=== PATIENT | male | born 1955 | race Caucasian/White ===

== ENCOUNTER 2016-12-08 14:52 | Emergency (ER) | payer OTHER ==
[~2016-12-08] VITALS: Ht 170.2 cm; Wt 100.0 kg
[~2016-12-08 14:52] MED LIST: CLC100 PO; DTR5 PO; IBUP-1459 PO; LRT5 PO; rapaflo PO
[2016-12-08 14:57] VITALS: Ht 170.2 cm; Wt 100.0 kg
[2016-12-08] MEDS ORDERED: IBUPROFEN 600 MG TAB PO STA (15:05)
[2016-12-08] MEDS ORDERED: CITA40TA12 PO (15:08)
[2016-12-08] MEDS ORDERED: LISI-725 PO (15:08)
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
[2016-12-08 16:13] VITALS: BP 166/113; PULSE 72; TEMP 37; O2SAT 99
[2016-12-09] MEDS ORDERED: METO-157 PO (14:55)
[2016-12-09] MEDS ORDERED: TRAM-10 PO (14:55)
== END 2016-12-08 16:14 | disposition home or self-care (01) ==
LOC: EDBD 14:52 → C.EDA 14:53
DX: S16.1XXA Strain of muscle, fascia and tendon at neck level, initial encounter (principal); V43.52XA Car driver injured in collision with other type car in traffic accident, initial encounter; Y92.410 Unspecified street and highway as the place of occurrence of the external cause; E78.5 Hyperlipidemia, unspecified; Z79.899 Other long term (current) drug therapy

== ENCOUNTER 2016-12-09 12:48 | Emergency (ER) | payer OTHER ==
[~2016-12-09] VITALS: Ht 170.2 cm; Wt 102.2 kg
[~2016-12-09 12:48] MED LIST changes: +CITA40TA12 PO; -CLC100 PO; -DTR5 PO; -IBUP-1459 PO; +LISI-725 PO; -LRT5 PO; -rapaflo PO
[2016-12-09 12:53] VITALS: TEMP 36.3; Ht 170.2 cm; Wt 102.2 kg
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
[2016-12-09] MEDS ORDERED: METOCLOPRAMIDE HCL INJ 5 MG/ML 2 ML VIAL IM STA (13:53)
[2016-12-09] MEDS ORDERED: ACETAMINOPHEN 325 MG TAB PO STA (13:53)
[2016-12-09] MEDS ORDERED: IBUPROFEN 200 MG TAB PO STA (13:53)
[2016-12-09 14:10] VITALS: BP 154/95; PULSE 59; O2SAT 96
[2016-12-09] MEDS ORDERED: TRAM-10 PO (14:55)
[2016-12-09] MEDS ORDERED: METO-157 PO (14:55)
== END 2016-12-09 15:17 | disposition home or self-care (01) ==
LOC: C.EDB 12:51 → C.EDA 15:17
DX: S06.0X9A Concussion with loss of consciousness of unspecified duration, initial encounter (principal); R51 Headache; V43.52XA Car driver injured in collision with other type car in traffic accident, initial encounter; Y92.410 Unspecified street and highway as the place of occurrence of the external cause; I10 Essential (primary) hypertension; E78.5 Hyperlipidemia, unspecified

== ENCOUNTER → 2017-01-02 | Outpatient (CLI) | payer OTHER ==
[~2017-01-02] MED LIST changes: +METO-157 PO
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
== END | disposition home or self-care (01) ==
LOC: C.MRI 13:40
PROVIDERS: ATTEND Psychiatry & Neurology Neurology
DX: H54.62 Unqualified visual loss, left eye, normal vision right eye (principal)

== ENCOUNTER 2024-09-19 16:41 | Observation (INO) ==
--- NOTE | 2024-09-19 16:51 | Emergency Department Note ---
Impression & Plan Exertional chest pain, Hypertension, Hyperlipidemia ED Provider Note NAME: BIANKA REAL AGE: 68 SEX: M : 1955 ARRIVES VIA: Walk-In INFORMANT: Patient ED PROVIDER(S): Leroy Agrawal MD CHIEF COMPLAINT: Chest pain with exertion. PLAN: Disposition: Admit MEDICAL DECISION MAKING: The patient is a pleasant 68-year-old gentleman with past medical history of hypertension, hyperlipidemia who presents to the emergency department via walk- in accompanied by his daughter for evaluation of central chest pain/pressure which began approximately an hour prior to arrival in the setting of having neck and shoulder pain that began around 1300 in the setting of going for a walk which he reports was not particularly strenuous. Patient reports that he frequently will exert himself working in the garden [employer] and will feel pain in his chest but attributes this to muscular pain to the activity that he is doing. He reports in those instances the pain he feels is not surprising or out of the ordinary according to the activity at the time. However today he reports his walk was nonstrenuous at all but started to have the symptoms towards the end of his walk and then began to feel chest pressure. Patient reports he took 3 ibuprofen and attempted to hydrate but pain persisted. He otherwise denies any recent fevers, chills, cough, congestion, GI or symptoms. On my evaluation the patient is in no distress, afebrile with blood pressure 160s/90s and vital signs otherwise stable. Appears clinically dry. Exam is otherwise unremarkable. EKG without overt acute ischemia. CXR negative for acute cardiopulmonary process per my personal preliminary review/interpretation. WBC, hemoglobin and platelets within normal limits. Chemistry without metabolic acidosis. Likewise FTs unremarkable. High-sensitivity troponin 6.9, within normal limits. Lipase is normal. CTA of the chest with dissection protocol was performed and per my preliminary independent interpretation demonstrated no evidence of acute aortic pathology. Final report confirms no acute aortic pathology PE or acute process otherwise. Given the patient's exertional symptoms today in the setting of exertional chest pain prior to this which may or may not be due to muscular exertion/strain, patient and his daughter agree with plan for admission for further management. Heart score is 5, moderate risk. Patient was ordered full dose aspirin and trial of nitroglycerin though he reports his discomfort at this time is a 2/10. Case was discussed with SPEEDY Raphael PAC, with SPEEDY Gayle hospitalist who will evaluate the patient for admission. Further management per admitting team. Triage Nursing notes reviewed and agree them. Prior/external medical records reviewed Vital Signs: reviewed Differential diagnosis: Cardiac ischemia, aortic dissection, pulmonary embolism, pneumothorax, pneumonia, pericarditis, myocarditis, esophageal rupture, GERD, cholecystitis, pancreatitis, musculoskeletal, as well as other pathologies. ER treatment provided: See below. Diagnostics interpreted by me: ECG: Sinus rhythm with occasional PVCs, 83 bpm, no overt ST elevation or depression, QTc 451, QRS 94. Cardiac Monitoring: An order for continuous cardiac monitoring was placed and demonstrated Sinus rhythm with occasional PVCs, 83 bpm Laboratory studies: See below Imaging studies: See below Consultation(s): SPEEDY Raphael PAC, with SPEEDY Gayle hospitalist HPI: Per MDM. ROS: See above HPI for pertinent positives & negatives. A total of 10 systems reviewed and were otherwise negative. VITALS:See Below PHYSICAL EXAMINATION: GENERAL: Awake, alert, in no distress HENT: Normocephalic, atraumatic. Oropharynx with dry mucous membranes and otherwise unremarkable. EYES: Normal conjunctiva. Sclera non-icteric. NECK: Supple. No nuchal rigidity. FROM. No JVD. RESPIRATORY: Clear to auscultation. CARDIAC: Regular rate, normal rhythm. Extremities warm and well perfused. Pulses equal. ABDOMEN: Soft, non-distended. No tenderness to palpation. No rebound or guarding. No masses. MUSCULOSKELETAL: Chest examination reveals no tenderness. The back is symmetrical on inspection without obvious abnormality. There is no CVA tenderness to palpation. No joint edema. LOWER EXTREMITIES: Calves are equal size bilaterally and non-tender. No edema. No discoloration. NEURO: Normal sensorium. No sensory or motor deficits noted. SKIN: No rash or jaundice noted. Leroy Agrawal MD Past Med/Surg History Problem List (Updated 09/20/24 @ 03:41 by Leroy Agrawal MD) Exertional chest pain (Acute) Hypertension (Acute) Hyperglycemia Depression History of prostate cancer Hyperlipidemia (Chronic) Hypertension (Chronic) Surgical History H/O inguinal hernia repair Left H/O prostatectomy 01/17/2011 @ [facility] [place]. Jacinto Family History Brother Hypertension Aunt Myocardial infarction Other Diabetes Heart disease Denies family history of Breast cancer Lung cancer Colorectal cancer Social History Smoking Status: Current some day smoker Tobacco Type: Cigars Cigarettes Per Day: cigars will smoke 5 in 7 days; Second Hand Exposure: Yes; Do You Dip or Chew Tobacco: No; Hx Alcohol Use: Yes Alcohol type: beer Alcohol Intake Frequency: 4 or More x per/Week Hx Substance Use: No Preferred Language: Korean Communication Ability: Effective Hearing Ability: Normal Ventilation Worker Required: No Beliefs That Will Affect Care: None marital status: Current Living Situation: Alone current occupational status: employed Other Information That Helps Us Care for You: No Feels Safe at Home: Yes Safety Concerns: Feels Safe At This Time Childhood Exposure to Second-Hand Smoke: Yes Diet: regular caffeine: Yes Dental Care, Regularly: No Physical Activity Frequency: Does not Exercise Seatbelt Use: always Sunscreen Use: Yes Assistive Devices: Denture - Upper, Denture - Lower and Glasses Allergies Allergies Allergy/AdvReac Type Severity Reaction Status Date / Time bee venom protein (honey bee) Allergy Mild SWELLING Verified 08/03/24 09:30 bupropion AdvReac Unknown Dizziness Unverified 08/03/24 09:30 and headache Home Meds Previous Rx's Medication Instructions Recorded citalopram 40 mg tablet 40 mg PO HS #90 tabs 07/13/24 amlodipine 5 mg tablet 5 mg PO DAILY #90 tabs 08/03/24 lisinopril 20 mg tablet 20 mg PO QAM #90 tabs 08/03/24 Results & Data (ED) Vital Signs Vital Signs - 24 hr 09/19/24 16:44 09/19/24 16:50 09/19/24 16:50 Temperature 36.9 C Temperature Source Temporal Artery Scan Pulse Rate 83 Pulse Rate from SpO2 Sensor Respiratory Rate 16 Respiratory Effort / Characteristics Non-Labored Spontaneous Respiratory Depth Normal Blood Pressure 164/98 H Blood Pressure Mean 120 Blood Pressure Position Sitting Pulse Oximetry 97 97 Oxygen Delivery Method Room Air Room Air Room Air Sepsis Recent Fever Within 48 Hours No Sepsis New/Unexplained Change in Mental Status N/A Sepsis Action Taken by Nursing No Action Required Oxygen Flow Rate - Titration 97 09/19/24 16:55 09/19/24 17:00 09/19/24 17:30 Temperature Temperature Source Pulse Rate 86 78 85 Pulse Rate from SpO2 Sensor 86 82 Respiratory Rate 15 17 Respiratory Effort / Characteristics Respiratory Depth Blood Pressure 156/72 H 159/94 H Blood Pressure Mean 100 115 Blood Pressure Position Pulse Oximetry 92 96 Oxygen Delivery Method Room Air Room Air Sepsis Recent Fever Within 48 Hours Sepsis New/Unexplained Change in Mental Status Sepsis Action Taken by Nursing Oxygen Flow Rate - Titration 09/19/24 18:00 09/19/24 19:30 Temperature Temperature Source Pulse Rate 69 74 Pulse Rate from SpO2 Sensor Respiratory Rate 22 18 Respiratory Effort / Characteristics Respiratory Depth Blood Pressure 137/89 134/77 Blood Pressure Mean 97 98 Blood Pressure Position Pulse Oximetry 95 97 Oxygen Delivery Method Room Air Room Air Sepsis Recent Fever Within 48 Hours Sepsis New/Unexplained Change in Mental Status Sepsis Action Taken by Nursing Oxygen Flow Rate - Titration Laboratory Data Attestation: I reviewed the patient's lab results. 09/19/24 16:59 09/19/24 17:45 Lab Results 09/19/24 09/19/24 09/19/24 Range/Units 16:59 17:45 19:21 WBC 7.08 (4.8-10.8) K/ul RBC 4.28 L (4.70-6.10) M/uL Hgb 14.9 (14.0-18.0) g/dl Hct 41.4 L (42.0-52.0) % MCV 96.7 (80.0-100.0) fL MCH 34.8 H (25.0-34.0) pg MCHC 36.0 (32.0-36.0) g/dL RDW Std Deviation 42.0 (36.4-46.3) fL RDW Coeff of [place] 11.9 (11.5-14.5) % Plt Count 159 (130-400) K/uL MPV 9.8 (9.4-12.4) fL Immature Gran % (Auto) 0.1 % Neut % (Auto) 63.0 % Lymph % (Auto) 24.6 % [place] % (Auto) 10.6 % Eos % (Auto) 1.4 % Baso % (Auto) 0.3 % Neut # (Auto) 4.46 (1.40-6.50) K/uL Lymph # (Auto) 1.74 (1.20-3.40) K/uL [place] # (Auto) 0.75 H (0.11-0.59) K/uL Eos # (Auto) 0.10 (0.00-0.50) K/uL Baso # (Auto) 0.02 (0.00-0.20) K/uL Immature Gran # (Auto) 0.01 (0.01-0.20) K/uL PT 11.3 (9.0-12.0) Seconds INR 1.0 (0.9-1.1) Sodium Cancelled 135 L Potassium Cancelled 4.1 Chloride Cancelled 106 Carbon Dioxide Cancelled 24 Anion Gap Cancelled 5 BUN Cancelled 15 Creatinine Cancelled 0.89 Est Cr Clr Drug Dosing Cancelled 89.4 eGFR Cancelled 93.93 BUN/Creatinine Ratio Cancelled 16.9 Glucose Cancelled 105 H Calcium Cancelled 8.5 L Phosphorus Cancelled 3.1 Magnesium Cancelled 1.9 Total Bilirubin Cancelled 0.7 AST Cancelled 19 ALT Cancelled 13 Alkaline Phosphatase Cancelled 52 Troponin I High Sens 6.9 7.7 (0-20) pg/ml Total Protein Cancelled 6.6 Albumin Cancelled 3.5 Globulin Cancelled 3.1 Albumin/Globulin Ratio Cancelled 1.1 Lipase Cancelled 12 Administered Medications Citalopram Hydrobromide (Citalopram 40 Mg Tab) 40 mg PO HS LY Stop: 10/19/24 22:19 Last Admin: 09/19/24 22:37 Dose: 40 mg Documented By: LATA Enoxaparin Sodium (Enoxaparin Inj 40 Mg/0.4 Ml Syr) 40 mg SQ HS LY Stop: 10/19/24 22:19 Last Admin: 09/19/24 22:37 Dose: Not Given Documented By: LATA Discontinued Medications Aspirin (Aspirin Chew 324 Mg) 324 mg PO NOW STA Stop: 09/19/24 18:38 Last Admin: 09/19/24 18:58 Dose: 324 mg Documented By: BREONNA Sodium Chloride (Nss) 500 mls @ 999 mls/hr IV .Q31M STA Stop: 09/19/24 17:20 Last Infusion: 09/19/24 17:56 Dose: Infused Documented By: Admin: 09/19/24 17:14 Dose: 999 mls/hr Documented By: BREONNA Ioversol (Optiray 320 125ml) 119 ml IV ONCE ONE Stop: 09/19/24 18:34 Last Admin: 09/19/24 18:33 Dose: 119 ml Documented By: BOY Nitroglycerin (Nitroglycerin Sl 0.4 Mg/Tab Tab) 0.4 mg SL NOW STA Stop: 09/19/24 18:41 Last Admin: 09/19/24 18:59 Dose: 0.4 mg Documented By: BREONNA Imaging Data Radiologist's Impression: Chest X-Ray 09/19/24 16:50 EXAM: XR chest 1V portable CLINICAL HISTORY: Chest pain, nonspecific TECHNIQUE: An X-ray image of the chest is obtained in AP projection. COMPARISON: 07/16/2023 FINDINGS: Pulmonary Parenchyma: Prominent bronchovascular markings bilaterally. No evidence of consolidation, collapse, or focal opacities. No pulmonary nodules are identified. No evidence of pleural effusion or pleural thickening. Heart and Mediastinum: Cardiac size appears mildly enlarged. No mediastinal widening or masses. No hilar or mediastinal lymphadenopathy. Bony Thorax: Bony thorax appears intact without fractures or deformities. Soft Tissues: Soft tissues overlying the chest wall are unremarkable. IMPRESSION: 1. Cardiomegaly. Prominent perihilar bronchovascular markings bilaterally. Features may suggest early pulmonary congestion. 2. No gross interval changes. Electronically signed by Doug June 09-19-2024 6:25 PM Chest CTA 09/19/24 17:39 EXAM: CT angio chest dissec wo/w con CLINICAL HISTORY: neck, back, chest pain, HTN TECHNIQUE: CT angiography of the chest was performed with and without intravenous contrast with the following protocol: axial images with reconstructed coronal and sagittal images. Non-contrast images were initially acquired, followed by contrast-enhanced images in arterial and venous phases. Intravenous contrast 119ml Opti 320 was administered using automated injection techniques. Bolus tracking was employed to optimize arterial phase imaging. One of these 3D techniques was utilized: Maximum Intensity Pixel (MIP), 3D Reconstructed Images, Volume Rendered Images, Surface Shaded Rendering. One of the following dose reduction techniques was utilized for this exam: Automated exposure control, adjustment of the mA and/or kV according to patient size, and use of iterative reconstruction. CTDI: 26.63mGY DLP: 886.49 mGy-cm COMPARISON: Correlated to the prior chest x-ray dated 09/19/2024 16:23:00 QUARRYING MANAGER, 07/16/2023. FINDINGS: Aorta and Great Vessels: Ascending Aorta: Normal in caliber (upper limit) 40.4x40.9 mm, no aneurysm, dissection, or significant atherosclerosis. Aortic Arch: Normal in caliber, 26.8 mm, no aneurysm, dissection, or significant atherosclerosis. Descending Aorta: Normal in caliber, 29x28 mm, no aneurysm, dissection, or significant atherosclerosis. Pulmonary Arteries: The main pulmonary artery is 28.7 mm, and its branches are patent. No evidence of pulmonary embolism or significant stenosis. Heart: Cardiac Chambers: Normal in size. No evidence of cardiomegaly. Pericardium: No pericardial effusion or thickening. Coronary calcifications. Lungs and Pleura: Lungs are clear without evidence of consolidation, collapse, or focal lesions. Bilateral minimal pleural effusion or pleural thickening. Mediastinum: Small reactive right paratracheal lymphadenopathy. Normal appearance of the trachea and central bronchi. Hilar Structures: Hilar structures are normal without enlargement. Chest Wall: No mass lesions or abnormalities in the chest wall. Vascular Structures: Superior Vena Cava: Patent without evidence of stenosis or thrombus. Inferior Vena Cava: Patent without evidence of stenosis or thrombus. Bones and Soft Tissues: No fractures, lytic, or blastic lesions of the visualized bony structures. Soft tissues are unremarkable. IMPRESSION: 1. No pulmonary embolism at time of scan. 2. Upper limited ascending aorta diamater with no significant vascular abnormalities. 3. Bilateral minimal pleural effusion or pleural thickening. (new) Electronically signed by Doug June 09-19-2024 8:31 PM Discharge Plan Visit Data Chief Complaint: Chest Pain Stated Complaint: NECK,SHOULDER,ARM PAIN,CHEST TIGHTNESS ED Provider: Leroy Agrawal Discharge Problem: Exertional chest pain, Hypertension, Hyperlipidemia Patient Disposition: Admitted As Inpatient Condition: Good Discharge Instructions Interventions: ED Discharge Assessment Last Done: 09/19/24 21:50 Discharge Problem: Hypertension Qualifiers: Hypertension type: unspecified Qualified Code(s): I10 - Essential (primary) hypertension Hyperlipidemia Qualifiers: Hyperlipidemia type: unspecified Qualified Code(s): E78.5 - Hyperlipidemia, unspecified
[2024-09-19 17:13] LABS: Basophils # (auto) 0.02 K/uL (0.00-0.20); Basophils % (auto) 0.3 %; Eosinophils % (auto) 1.4 %; Hematocrit (blood only) 41.4 % (42.0-52.0); Hemoglobin 14.9 g/dl (14.0-18.0); Immature Granulocytes # (auto) 0.01 K/uL (0.01-0.20); Immature Granulocytes % (auto) 0.1 %; Lymphocytes # (auto) 1.74 K/uL (1.20-3.40); Lymphocytes % (auto) 24.6 %; Mean Corpuscular Hemoglobin 34.8 pg (25.0-34.0); Mean Corpuscular Volume 96.7 fL (80.0-100.0); Mean Platelet Volume 9.8 fL (9.4-12.4); Monocytes # (auto) 0.75 K/uL (0.11-0.59); Monocytes % (auto) 10.6 %; Neutrophils # (auto) 4.46 K/uL (1.40-6.50); Platelet Count 159 K/uL (130-400); RDW Coefficient of Variation 11.9 % (11.5-14.5); Red Blood Count 4.28 M/uL (4.70-6.10); White Blood Count 7.08 K/ul (4.8-10.8)
[2024-09-19] MEDS: SODIUM CHLORIDE 0.9% 500 ML IV STA (17:14)
[2024-09-19 17:44] LABS: Prothrombin Time 11.3 Seconds (9.0-12.0)
[2024-09-19 18:25] LABS: Albumin Globulin Ratio 1.1 (0.9-2); Albumin Level 3.5 gm/dl (3.4-5.0); BUN Creatinine Ratio 16.9 (10-20); Bilirubin,Total 0.7 mg/dl (0.2-1.0); Calcium 8.5 mg/dl (8.6-10.3); Creatinine Clr Calc Pharmacy 89.4 ml/min; Globulin 3.1 gm/dl (2.5-4.0); Magnesium 1.9 mg/dl (1.7-2.4); Phosphorus 3.1 mg/dl (2.5-4.9); Potassium 4.1 mmol/L (3.5-5.1); Total Protein 6.6 gm/dl (6.0-8.3)
--- NOTE | 2024-09-19 18:26 | XRay Report ---
EXAM: XR chest 1V portable CLINICAL HISTORY: Chest pain, nonspecific TECHNIQUE: An X-ray image of the chest is obtained in AP projection. COMPARISON: 07/16/2023 FINDINGS: Pulmonary Parenchyma: Prominent bronchovascular markings bilaterally. No evidence of consolidation, collapse, or focal opacities. No pulmonary nodules are identified. No evidence of pleural effusion or pleural thickening. Heart and Mediastinum: Cardiac size appears mildly enlarged. No mediastinal widening or masses. No hilar or mediastinal lymphadenopathy. Bony Thorax: Bony thorax appears intact without fractures or deformities. Soft Tissues: Soft tissues overlying the chest wall are unremarkable. IMPRESSION: 1. Cardiomegaly. Prominent perihilar bronchovascular markings bilaterally. Features may suggest early pulmonary congestion. 2. No gross interval changes. Electronically signed by Doug June 09-19-2024 6:25 PM
[2024-09-19] MEDS: OPTIRAY 320 125ml IV ONE (18:33)
[2024-09-19] MEDS: ASPIRIN CHEW 324 MG PO STA (18:58)
[2024-09-19] MEDS: NITROGLYCERIN SL 0.4 MG/TAB TAB SL STA (18:59)
--- NOTE | 2024-09-19 19:03 | History & Physical Report ---
Date of Service September 19, 2024 Assessment & Plan (1) Exertional chest pain: Plan 68-year-old male PMHx HTN, HLD, depression, and prostate cancer presenting for sudden onset of R shoulder pain and chest pain starting at 1230 day of arrival. ED evaluation reveals no leukocytosis, stable H&H; PT/INR WNL; CMP sodium 135, glucose 105, calcium 8.5; troponin 6.9, pending repeat; CXR with cardiomegaly and findings that may suggest early pulmonary congestion but no gross interval changes; chest CTA pending official read; EKG sinus rhythm with occasional PVCs and PACs at 83 bpm.; Provided with 500 mL NSS, nitroglycerin 0.4 mg SL, and aspirin 324 mg p.o. in ED. #Exertional chest pain Chest pain starting at 1230-day of arrival while walking, initiating in the R shoulder then radiating to L chest; no significant history of cardiac disease. This is changed from normal symptoms in which he may sometimes gets pressure in his chest whenever he is doing yard work which he correlates with movement, however this was different and was more severe in nature. HEART score 4 (history moderately suspicious, EKG normal, age >65, 1-2 risk factors, initial troponin normal). History of HTN, HLD (no medications); significant history of cardiac disease in family. Given HEART score of 4, episodes of unexplainable dizziness, and suspicious history for cardiac event, patient admitted for observation. - CBC does not reveal leukocytosis or anemia - EKG sinus rhythm with occasional PVCs and PACs at 83 bpm, no signs of ischemia - Troponin 6.9, repeat 7.7; will trend to peak - CXR with cardiomegaly and possible early signs of pulmonary congestion - Chest CTA without acute findings - Stress echo pending am - Lipid panel in am, A1c am - Continuous cardiac monitoring - Consider cardio consult pending results/clinical course -- however, establishing with outpatient intellectual property lawyer recommended #HTN- Amlodipine, lisinopril - continue #Depression- Citalopram - continue #Prostate cancer- S/p prostatectomy Please call daughter, Kamilah Whitt, with updates - [phone] Dispo: Observation, med/tele VTE Prophylaxis: Lovenox This document was dictated utilizing [employer]. Please excuse any grammatical errors that may be secondary to use of this software. Admission and Anticipated Discharge Date Admission Date: 09/19/2024 History of Present Illness Chief Complaint: Chest pain Primary Care Provider: JEANNA Mejia 68-year-old male PMHx HTN, HLD, depression, and prostate cancer presenting for sudden onset of R shoulder pain and chest pain starting at 1230 day of arrival. Patient was walking a few miles downtown to grab lunch around 1230 when he noticed he started to have significant R arm pain. States that it was mainly in his shoulder and then started to radiate to his shoulder blades. He walked a few miles and was able to get back home. At that time he took 3 ibuprofen and put IcyHot on the area. He notes that the pain did not resolve with this and then started to spread across to his chest, mainly localizing to the left side. Reports that the pain was also noticeable into his jaw and neck on the right side. At that point, he called his daughter to come and evaluate him. States that the pain continued and he took an additional 3 ibuprofen which did not alleviate the pain. The pain was an 8 out of 10 on the pain scale. Notes that he was with pain from around [id number]. At present, pain is less than 2 out of 10 and is mainly with any palpation to the left chest, but none at rest. States that he does not normally get any symptoms of chest pain or pressure with exertion. Normally able to walk multiple miles without stopping or chest discomfort. He does note some mild epigastric pain that started the day of arrival as well but without nausea or vomiting. Of note, patient has been experiencing ongoing dizziness that comes and goes and is mainly with positional changes. These do sometimes result in falls but he has never injured himself from them, never hit his head, and is not on blood thinners. He has been evaluated for this in the past per her report, was told that it is related to his concussions. He does not associate any other symptoms with the episodes of dizziness. Patient states that he follows with his PCP but does not believe that he follows with additional specialist. Patient had a similar episode of SOB and chest pain happen approximately 2 to 3 years ago which went away with rest so he did not get evaluated. Otherwise, this is never happened before. Patient takes all of his medications as prescribed. Reports significant cardiac history in his family. ED evaluation reveals no leukocytosis, stable H&H; PT/INR WNL; CMP sodium 135, glucose 105, calcium 8.5; troponin 6.9, pending repeat; CXR with cardiomegaly and findings that may suggest early pulmonary congestion but no gross interval changes; chest CTA pending official read; EKG sinus rhythm with occasional PVCs and PACs at 83 bpm.; Provided with 500 mL NSS, nitroglycerin 0.4 mg SL, and aspirin 324 mg p.o. in ED. Please see Dr. Mckenzie's attestation for adjustments/additions to treatment plan. Allergies Allergy/AdvReac Type Severity Reaction Status Date / Time bee venom protein (honey bee) Allergy Mild SWELLING Verified 08/03/24 09:30 bupropion AdvReac Unknown Dizziness Unverified 08/03/24 09:30 and headache Home Medications Medication Instructions Recorded Confirmed Type citalopram 40 mg tablet 40 mg PO HS #90 tabs 07/13/24 09/19/24 Rx amlodipine 5 mg tablet 5 mg PO DAILY #90 tabs 08/03/24 09/19/24 Rx lisinopril 20 mg tablet 20 mg PO QAM #90 tabs 08/03/24 09/19/24 Rx Past Med/Surg History Problem List Exertional chest pain Hypertension (Acute) Chest pain (Acute) Hyperglycemia Depression History of prostate cancer Hyperlipidemia (Chronic) Hypertension (Chronic) Surgical History H/O inguinal hernia repair Left H/O prostatectomy 01/17/2011 @ [facility] [place] Dr. Jacinto Family History Brother Hypertension Aunt Myocardial infarction Other Diabetes Heart disease Denies family history of Breast cancer Lung cancer Colorectal cancer Social History Smoking Status: Current some day smoker Tobacco Type: Cigars Cigarettes Per Day: cigars will smoke 5 in 7 days; Second Hand Exposure: Yes; Do You Dip or Chew Tobacco: No; Hx Alcohol Use: Yes Alcohol type: beer Alcohol Intake Frequency: 4 or More x per/Week Hx Substance Use: No Preferred Language: Surinamese Communication Ability: Effective Hearing Ability: Normal Packaging Supervisor Required: No Beliefs That Will Affect Care: None marital status: Current Living Situation: Alone current occupational status: employed Other Information That Helps Us Care for You: No Feels Safe at Home: Yes Safety Concerns: Feels Safe At This Time Childhood Exposure to Second-Hand Smoke: Yes Diet: regular caffeine: Yes Dental Care, Regularly: No Physical Activity Frequency: Does not Exercise Seatbelt Use: always Sunscreen Use: Yes Assistive Devices: Denture - Upper, Denture - Lower and Glasses Review of Systems Review of Systems: All systems reviewed & are unremarkable except as noted in Subjective Physical Exam Physical Exam: General: No acute distress Skin: Warm and dry Head: Normocephalic, atraumatic Eyes: PERRL, conjunctivae clear, sclera non-icteric; wearing glasses ENT: External ear and ear canal without swelling; nose atraumatic; good dentition, tongue normal appearance, pharynx normal Neck: Supple, no LAD Cardio: RRR, no M/G/R, S1 and S2 normal; mild tenderness palpation of chest Resp: No respiratory distress, Lungs CTA in all lobes bilaterally, no wheezes, rales, or rhonchi Abdomen: Soft, symmetric, nontender; No masses or hepatosplenomegaly; Bowel sounds normoactive MSK: No deformities; pulses palpable and equal; no edema; no calf discrepancy. Neuro: Awake, alert; Sensation intact bilaterally; CN grossly intact Psych: Appropriate mood and affect; good judgement and insight. Daughter, Kamilah, in room at time of visit. Results & Data Results & Data Vital Signs (Past 12 Hours) Vital Signs Temp Pulse Resp BP Pulse Ox O2 Del Method 09/19/24 18:00 69 22 137/89 95 Room Air 09/19/24 17:30 85 17 159/94 H 96 Room Air 09/19/24 17:00 78 15 156/72 H 92 Room Air 09/19/24 16:55 86 09/19/24 16:50 97 Room Air 09/19/24 16:50 Room Air 09/19/24 16:44 36.9 C 83 16 164/98 H 97 Room Air Laboratory Results 09/19/24 09/19/24 17:45 16:59 WBC 7.08 RBC 4.28 L Hgb 14.9 Hct 41.4 L MCV 96.7 MCH 34.8 H MCHC 36.0 RDW Std Deviation 42.0 RDW Coeff of [place] 11.9 Plt Count 159 MPV 9.8 Immature Gran % (Auto) 0.1 Neut % (Auto) 63.0 Lymph % (Auto) 24.6 [place] % (Auto) 10.6 Eos % (Auto) 1.4 Baso % (Auto) 0.3 Neut # (Auto) 4.46 Lymph # (Auto) 1.74 [place] # (Auto) 0.75 H Eos # (Auto) 0.10 Baso # (Auto) 0.02 Immature Gran # (Auto) 0.01 PT 11.3 INR 1.0 Sodium 135 L Cancelled Potassium 4.1 Cancelled Chloride 106 Cancelled Carbon Dioxide 24 Cancelled Anion Gap 5 Cancelled BUN 15 Cancelled Creatinine 0.89 Cancelled Est Cr Clr Drug Dosing 89.4 Cancelled eGFR 93.93 Cancelled BUN/Creatinine Ratio 16.9 Cancelled Glucose 105 H Cancelled Calcium 8.5 L Cancelled Phosphorus 3.1 Cancelled Magnesium 1.9 Cancelled Total Bilirubin 0.7 Cancelled AST 19 Cancelled ALT 13 Cancelled Alkaline Phosphatase 52 Cancelled Troponin I High Sens 6.9 Total Protein 6.6 Cancelled Albumin 3.5 Cancelled Globulin 3.1 Cancelled Albumin/Globulin Ratio 1.1 Cancelled Lipase 12 Cancelled Diagnostic Findings Chest X-Ray 09/19/24 16:50 EXAM: XR chest 1V portable CLINICAL HISTORY: Chest pain, nonspecific TECHNIQUE: An X-ray image of the chest is obtained in AP projection. COMPARISON: 07/16/2023 FINDINGS: Pulmonary Parenchyma: Prominent bronchovascular markings bilaterally. No evidence of consolidation, collapse, or focal opacities. No pulmonary nodules are identified. No evidence of pleural effusion or pleural thickening. Heart and Mediastinum: Cardiac size appears mildly enlarged. No mediastinal widening or masses. No hilar or mediastinal lymphadenopathy. Bony Thorax: Bony thorax appears intact without fractures or deformities. Soft Tissues: Soft tissues overlying the chest wall are unremarkable. IMPRESSION: 1. Cardiomegaly. Prominent perihilar bronchovascular markings bilaterally. Features may suggest early pulmonary congestion. 2. No gross interval changes. Electronically signed by Doug June 09-19-2024 6:25 PM Medications Administered NSS 500 mL Nitroglycerin 0.4 mg SL Aspirin 324 mg p.o. ECG Additional Comments: Sinus rhythm with occasional PVCs and PACs 83 bpm, OK 174, QRS 94, QT/QTc 384/451, PRT 54/53/43 Code Status & VTE Plan Code Status Full Supervising Physician Co-Signing Physician Notes Patient seen examined, chart reviewed, case discussed with JUVENAL Melgoza I agree with assessment plan as diagrammed above. In brief patient is a 68-year-old presenting with exertional chest pain. He has history of hypertension, hyperlipidemia. Workup thus far unremarkable including normal troponin, EKG with no acute ischemic changes and CTA with no acute findings. On physical exam, patient is resting comfortably, no acute distress Skin without rash HEENTmoist mucous membranes, neck supple Heart + S1, S2, regular, no murmur/rub/gallops LungsCTA Abdomensoft, nontender, nondistended Extremitieswarm, well-perfused Labs and images reviewed Assessment/plan exertional chest [id number] male with history of hypertension, hyperlipidemia Will continue to trend troponin Stress echo ordered for the morning Remainder as above PG Care Time/CCT Total # of Minutes Spent Total Time Spent with Patient: Total time spent is greater than 50% in coordination of care (as documented) at patient's floor/unit and/or counseling patient: Coding Level of Care Code 60779 INT INP/OBS CARE 3/75MIN Diagnoses Exertional chest pain R07.9
--- NOTE | 2024-09-19 20:31 | CT Scan Report ---
EXAM: CT angio chest dissec wo/w con CLINICAL HISTORY: neck, back, chest pain, HTN TECHNIQUE: CT angiography of the chest was performed with and without intravenous contrast with the following protocol: axial images with reconstructed coronal and sagittal images. Non-contrast images were initially acquired, followed by contrast-enhanced images in arterial and venous phases. Intravenous contrast 119ml Opti 320 was administered using automated injection techniques. Bolus tracking was employed to optimize arterial phase imaging. One of these 3D techniques was utilized: Maximum Intensity Pixel (MIP), 3D Reconstructed Images, Volume Rendered Images, Surface Shaded Rendering. One of the following dose reduction techniques was utilized for this exam: Automated exposure control, adjustment of the mA and/or kV according to patient size, and use of iterative reconstruction. 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 FINDINGS: Aorta and Great Vessels: Ascending Aorta: Normal in caliber (upper limit) 40.4x40.9 mm, no aneurysm, dissection, or significant atherosclerosis. Aortic Arch: Normal in caliber, 26.8 mm, no aneurysm, dissection, or significant atherosclerosis. Descending Aorta: Normal in caliber, 29x28 mm, no aneurysm, dissection, or significant atherosclerosis. Pulmonary Arteries: The main pulmonary artery is 28.7 mm, and its branches are patent. No evidence of pulmonary embolism or significant stenosis. Heart: Cardiac Chambers: Normal in size. No evidence of cardiomegaly. Pericardium: No pericardial effusion or thickening. Coronary calcifications. Lungs and Pleura: Lungs are clear without evidence of consolidation, collapse, or focal lesions. Bilateral minimal pleural effusion or pleural thickening. Mediastinum: Small reactive right paratracheal lymphadenopathy. Normal appearance of the trachea and central bronchi. Hilar Structures: Hilar structures are normal without enlargement. Chest Wall: No mass lesions or abnormalities in the chest wall. Vascular Structures: Superior Vena Cava: Patent without evidence of stenosis or thrombus. Inferior Vena Cava: Patent without evidence of stenosis or thrombus. Bones and Soft Tissues: No fractures, lytic, or blastic lesions of the visualized bony structures. Soft tissues are unremarkable. IMPRESSION: 1. No pulmonary embolism at time of scan. 2. Upper limited ascending aorta diamater with no significant vascular abnormalities. 3. Bilateral minimal pleural effusion or pleural thickening. (new) Electronically signed by Doug June 09-19-2024 8:31 PM
[2024-09-19] MEDS ORDERED: POLYETHYLENE (MIRALAX) 17 GM PACK PO PRN (22:20)
[2024-09-19] MEDS ORDERED: ONDANSETRON INJ 2 MG/ML 2 ML VIAL IV PRN (22:20)
[2024-09-19] MEDS ORDERED: MELATONIN 3 MG TAB PO PRN (22:20)
[2024-09-19] MEDS ORDERED: ACETAMINOPHEN 325 MG TAB PO PRN (22:20)
[2024-09-19] MEDS: CITALOPRAM 40 MG TAB PO SCH (22:37)
[2024-09-19] MEDS: ENOXAPARIN INJ 40 MG/0.4 ML SYR SQ SCH (22:37)
[2024-09-20 02:28] LABS: Chol HDL Ratio 3.5 (0-5)
[2024-09-20 03:02] VITALS: RESP 16
--- NOTE | 2024-09-20 07:45 | Hospitalist Progress Note ---
Date of Service September 20, 2024 Assessment & Plan (1) Exertional chest pain: Plan 68-year-old male PMHx HTN, HLD, depression, and prostate cancer presenting for sudden onset of R shoulder pain and chest pain starting at 1230 day of arrival. ED evaluation reveals no leukocytosis, stable H&H; PT/INR WNL; CMP sodium 135, glucose 105, calcium 8.5; troponin 6.9, pending repeat; CXR with cardiomegaly and findings that may suggest early pulmonary congestion but no gross interval changes; chest CTA pending official read; EKG sinus rhythm with occasional PVCs and PACs at 83 bpm.; Provided with 500 mL NSS, nitroglycerin 0.4 mg SL, and aspirin 324 mg p.o. in ED. #Exertional chest pain Chest pain starting at 1230-day of arrival while walking, initiating in the R shoulder then radiating to L chest; no significant history of cardiac disease. This is changed from normal symptoms in which he may sometimes gets pressure in his chest whenever he is doing yard work which he correlates with movement, however this was different and was more severe in nature. HEART score 4 (history moderately suspicious, EKG normal, age >65, 1-2 risk factors, initial troponin normal). History of HTN, HLD (no medications for HLD); significant history of cardiac disease in family. Given HEART score of 4, episodes of unexplainable dizziness, and suspicious history for cardiac event, patient admitted for observation. - CBC does not reveal leukocytosis or anemia - EKG sinus rhythm with occasional PVCs and PACs at 83 bpm, no signs of ischemia - Troponin 6.9, repeat 7.7; will trend to peak - CXR with cardiomegaly and possible early signs of pulmonary congestion - Chest CTA without acute findings - Stress echo pending am - Lipid panel in am, A1c am - Continuous cardiac monitoring - Consider cardio consult pending results/clinical course -- however, establishing with outpatient leather seasoner recommended Lipid panel - TRG 98, Chol 184, LDL 112, HDL 52 A1c pending Troponin 6.9--> 7.7 --> 7.8 Stress echo ordered BP acceptable on amlodipine, lisinopril - 127/64. (Note however was elevated to 164/98 on admission) #HTN- Amlodipine, lisinopril - continue #Depression- Citalopram - continue #Prostate cancer- S/p prostatectomy Please call daughter, Kamilah Whitt, with updates - [phone] Dispo: Observation, med/tele VTE Prophylaxis: Lovenox Admission and Anticipated Discharge Date Admission Date: September 19, 2024 Results & Data Results & Data Vital Signs (Past 12 Hours) Vital Signs Temp Pulse Pulse Pulse Resp BP BP 09/20/24 07:07 62 09/20/24 02:28 36.6 C 68 16 127/64 09/19/24 22:25 09/19/24 22:25 36.7 C 71 18 170/87 H 09/19/24 22:20 70 09/19/24 21:43 68 09/19/24 21:30 64 16 121/69 09/19/24 21:00 66 16 138/72 09/19/24 20:30 70 16 125/83 Pulse Ox O2 Del Method 09/20/24 07:07 09/20/24 02:28 98 Room Air 09/19/24 22:25 Room Air 09/19/24 22:25 96 Room Air 09/19/24 22:20 09/19/24 21:43 09/19/24 21:30 96 Room Air 09/19/24 21:00 96 Room Air 09/19/24 20:30 97 Room Air Laboratory Results 09/19/24 16:59 09/19/24 17:45 PG Care Time/CCT Total # of Minutes Spent Total Time Spent with Patient: Total time spent is greater than 50% in coordination of care (as documented) at patient's floor/unit and/or counseling patient: Coding Diagnoses Exertional chest pain R07.9
[2024-09-20] MEDS: PERFLUTREN LIPID MICROSPHERE (DEFINITY) IV ONE (08:06)
[2024-09-20 08:20] LABS: Estimated Average Glucose 108 mg/dl; Hemoglobin A1C 5.4 % (4.5-5.6)
[2024-09-20] MEDS: amLODIPine BESYLATE 5 MG TAB PO SCH (08:31)
[2024-09-20] MEDS: lisinopril 20 MG TAB PO SCH (08:31)
[2024-09-20 08:55] LABS: BUN Creatinine Ratio 14.3 (10-20); Calcium 9.3 mg/dl (8.6-10.3); Creatinine Clr Calc Pharmacy 94.9 ml/min; Potassium 4.4 mmol/L (3.5-5.1)
[2024-09-20 09:10] LABS: Thyroid Stimulating Hormone 1.475 uIu/ml (0.300-4.500)
--- NOTE | 2024-09-20 10:52 | XCELERA ---
[id number] \\[id number]
--- NOTE | 2024-09-20 11:48 | Discharge Summary ---
Discharge Summary Date of Service September 20, 2024 Principal Dx & Hospital Course #1 = Principal Diagnosis (1) Exertional chest pain: Plan #Exertional chest pain 68yo male with PMHx HTN, HLD, depression, prostate ca presented after sudden onset R shoulder pain starting 1230 on 09/19. Had been walking a few miles downtown to get lunch when developed pain w/ radiation to shoulder bladers and was able to walk a few miles to get back home and at that time took 3 ibuprofen and put icy hot on the area which did not resolve pain and then spread to the left and noticed jaw/neck pain and called daughter to come evaluate him. Was pain free from [id number] and on admission pain w/ palpation of chest but none at rest. No sx CP/pressure w/ exertion prior and very active. Has experienced episodes of dizziness w/ positional change and sometimes has falls at home but none recently. Had similar episode of SOB/CP 2-3yo which went away at rest and so did not get evaluated. EKG w/ SR w/ occ PVC, PAC 83bpm. Given nitro 0.4mg SL and 500cc NSS w/ 324mg ASA on admission WBC w/o leukocytosis, stable hgb and renal function. Ca 8.5 and Na 135, TSH wnl CXR w/ cardiomegaly, possible early congestion but no hypoxia or O2 requirement. Chest CTA negative for PE, possible small effusions but no consolidation/pneumoina Troponins obtained and were negative x 3 and remained essentially flat 6.9, 7.7, 7.8 and no further chest pain reported on repeat exam 09/20 Discussed with cardiology and did undergo dobutamine stress echo which was negative for wma and can follow up outpatient Dobutamine Stress ECHO 09/20/24 * LV systolic function is normal. * No regional wall motion abnormalities * Mild concentric LVH * LV Ejection Fraction 55-60% * Trivial mild aortic insufficiency, mild tricuspid regurgitation. * No prior study for comparison A1c NOT elevated at 5.4 Lipid panel acceptable -TRG 98, Chol 184, LDL 112, HDL 52. Did discuss w/ family hx could start meds but preference by patient to try diet modification first and rec f/u discussion w/ PCP Consider cards ref in f/u to consider echocardiogram but did discuss with patient to monitor BP at home/cut back on salt as BP well controlled at dc 123/77 and was continued on amlodipine 5mg and lisinopril 20mg daily but was elevated to 164/98 on admission and ?HTN urgency. Rec to monitor BP at home, can consider further adj to meds in f/u if remains elevated Telemetry w/ occ PAC but no arrhythmia. TSH again checked for completeness and was wnl. Again, did discuss possible reflux with patient as etiology and in setting of ibuprofen making sx worse and ate pizza prior, consideration for H2 jose raul/PPI in follow up but encouraged to avoid spicy/fried foods. Notable LFTs wnl/lipase and no RUQ pain reported Updated daughter Kamilah at bedside prior to dc and will forward summary to PCP Trupti Da Silva as discussed #HTN- BP elevated as above on admission but improved on repeat on usual amlodipine/lisinopril. Encouraged continued monitoring BP at home and LOW SALT diet and f/u PCP for further adjustment as needed #Depression- Citalopram continued #Prostate cancer- S/p prostatectomy DVT proph: lovenox SQ utilized while inpatient Notes For Next Care Provider Monitor BP in follow up, consider increasing lisinopril/adding low dose diuretic pending improvement w/ limiting salt as outpatient. Also discussed lipid panel but willing to change diet/monitor in repeat prior to stating statin but if changes mind in follow up would rec low dose statin in the meantime Monitor for any reflux/need for H2/PPI therapy (reported pizza prior to arrival, ibuprofen. hgb stable and LFTs wnl, lipase 12). TSH wnl 1.47 Medication Changes From Visit None Admission HPI Per Admitting Provider 68-year-old male PMHx HTN, HLD, depression, and prostate cancer presenting for sudden onset of R shoulder pain and chest pain starting at 1230 day of arrival. Patient was walking a few miles downtown to grab lunch around 1230 when he noticed he started to have significant R arm pain. States that it was mainly in his shoulder and then started to radiate to his shoulder blades. He walked a few miles and was able to get back home. At that time he took 3 ibuprofen and put IcyHot on the area. He notes that the pain did not resolve with this and then started to spread across to his chest, mainly localizing to the left side. Reports that the pain was also noticeable into his jaw and neck on the right side. At that point, he called his daughter to come and evaluate him. States that the pain continued and he took an additional 3 ibuprofen which did not alleviate the pain. The pain was an 8 out of 10 on the pain scale. Notes that he was with pain from around [id number]. At present, pain is less than 2 out of 10 and is mainly with any palpation to the left chest, but none at rest. States that he does not normally get any symptoms of chest pain or pressure with exertion. Normally able to walk multiple miles without stopping or chest discomfort. He does note some mild epigastric pain that started the day of arrival as well but without nausea or vomiting. Of note, patient has been experiencing ongoing dizziness that comes and goes and is mainly with positional changes. These do sometimes result in falls but he has never injured himself from them, never hit his head, and is not on blood thinners. He has been evaluated for this in the past per her report, was told that it is related to his concussions. He does not associate any other symptoms with the episodes of dizziness. Patient states that he follows with his PCP but does not believe that he follows with additional specialist. Patient had a similar episode of SOB and chest pain happen approximately 2 to 3 years ago which went away with rest so he did not get evaluated. Otherwise, this is never happened before. Patient takes all of his medications as prescribed. Reports significant cardiac history in his family. ED evaluation reveals no leukocytosis, stable H&H; PT /INR WNL; CMP sodium 135, glucose 105, calcium 8.5; troponin 6.9, pending repeat; CXR with cardiomegaly and findings that may suggest early pulmonary congestion but no gross interval changes; chest CTA pending official read; EKG sinus rhythm with occasional PVCs and PACs at 83 bpm.; Provided with 500 mL NSS, nitroglycerin 0.4 mg SL, and aspirin 324 mg p.o. in ED. Please see Dr. Mckenzie's attestation for adjustments/additions to treatment plan. Admission Exam Per Admitting Provider General: No acute distress Skin: Warm and dry Head: Normocephalic, atraumatic Eyes: PERRL, conjunctivae clear, sclera non-icteric; wearing glasses ENT: External ear and ear canal without swelling; nose atraumatic; good dentition, tongue normal appearance, pharynx normal Neck: Supple, no LAD Cardio: RRR, no M/G/R, S1 and S2 normal; mild tenderness palpation of chest Resp: No respiratory distress, Lungs CTA in all lobes bilaterally, no wheezes, rales, or rhonchi Abdomen: Soft, symmetric, nontender; No masses or hepatosplenomegaly; Bowel sounds normoactive MSK: No deformities; pulses palpable and equal; no edema; no calf discrepancy. Neuro: Awake, alert; Sensation intact bilaterally; CN grossly intact Psych: Appropriate mood and affect; good judgement and insight. Daughter, Kamilah, in room at time of visit. Discharge Exam General: 68yo male resting in bed, NAD, daughter at bedside Head atraumatic, normocephalic, mmm trachea midline Resp even/unlabored, no wheezing/rales, on room air CV: NSR w/ occ PAC, rates controlled,no arrhythmia, no pitting edema/calf tenderness GI: +BS, soft/NT MSK/Neuro: nonfocal, not confused, answering questions appropriately Psych: AOx3, cooperative with exam Discharge Plan Discharge Items Patient Disposition: Home - Self-Care Reason For Visit: EXERTIONAL CHEST PAIN Discharge Diagnosis: Chest pain rule out Condition on Discharge: Good Goals: You have been hospitalized for an acute medical problem. During your stay at [facility], we have made an effort to correct the problem that brought you to the hospital while keeping you as comfortable as possible. Medications were used to bring your condition under control and your discharge instructions will include directions for any medications you should take after leaving the hospital. Please make sure you see your Primary Care Provider as part of your follow up plan. Activity: As commented below Non-emergency contact: Primary Care Provider and Bilingual Kindergarten Teacher Call non-emergency contact if: you have any medication questions, your symptoms worsen, your pain is not controlled, your pain is worsening, your pain is unusual for you and you have a fever Follow-up/Referrals: Huy Anderson MD [Physician] - Trupti Da Silva CRNP [Primary Care Provider] - 09/30/24 2:00 pm Diet: Heart Healthy and Low Sodium (2gm) Addtl Attending Provider Instructions: You have been hospitalized for chest pain. Cardiac enzymes were negative x 3 ECHO (ultrasound) of the heart did NOT show any wall motion abnormalities concerning for damage to the heart. Chest CT was NEGATIVE for blood clot. As discussed, lipid panel is acceptable but recommend modifying diet and follow up with primary care but if remains elevated can start medication like atorvastatin (lipitor). A1c was 5.4 -- NOT diabetic. As discussed, I suspect need to limit salt in the diet and monitor your blood pressure. If remains elevated at home/above goal, you may benefit from additional medications but have been well controlled at 122/68 this morning. Monitor for need for any reflux if related to after eating and consider limiting spice/fried foods like pizza. Please follow up with primary care in the next week after discharge to monitor your progress as well cardiology as needed. Please return to the ER with any return of symptoms, fever/chills, shortness of breath or for any other symptoms concerning for you. Take care! Pending Studies at Discharge: No Stand-Alone Forms: My [facility], Smoking Cessation Medications and DC Order Prescriptions: Continued citalopram 40 mg tablet 40 mg PO HS Qty: 90 3RF amlodipine 5 mg tablet 5 mg PO DAILY Qty: 90 3RF lisinopril 20 mg tablet 20 mg PO QAM Qty: 90 3RF Discharge Orders: Discharge Order (Routine); Ordered 09/20/24 Ordered By: Barbara Resendez Admission Data Admit Date/Time: 09/19/24 19:49 Attending Provider: Yuri Cormier Admit Provider: Elyse Mckenzie Primary Care Provider: Trupti Da Silva Other Providers: Yuri Cormier Other Interventions: Discharge Summary Assessment (RN) Last Done: 09/20/24 12:04 Hospital Stay Data Consultations 09/19/24 18:47 ED Decision to Admit Stat Diagnostic Imagining Performed Chest X-Ray 09/19/24 16:50 EXAM: XR chest 1V portable CLINICAL HISTORY: Chest pain, nonspecific TECHNIQUE: An X-ray image of the chest is obtained in AP projection. COMPARISON: 07/16/2023 FINDINGS: Pulmonary Parenchyma: Prominent bronchovascular markings bilaterally. No evidence of consolidation, collapse, or focal opacities. No pulmonary nodules are identified. No evidence of pleural effusion or pleural thickening. Heart and Mediastinum: Cardiac size appears mildly enlarged. No mediastinal widening or masses. No hilar or mediastinal lymphadenopathy. Bony Thorax: Bony thorax appears intact without fractures or deformities. Soft Tissues: Soft tissues overlying the chest wall are unremarkable. IMPRESSION: 1. Cardiomegaly. Prominent perihilar bronchovascular markings bilaterally. Features may suggest early pulmonary congestion. 2. No gross interval changes. Electronically signed by Doug June 09-19-2024 6:25 PM Chest CTA 09/19/24 17:39 EXAM: CT angio chest dissec wo/w con CLINICAL HISTORY: neck, back, chest pain, HTN TECHNIQUE: CT angiography of the chest was performed with and without intravenous contrast with the following protocol: axial images with reconstructed coronal and sagittal images. Non-contrast images were initially acquired, followed by contrast-enhanced images in arterial and venous phases. Intravenous contrast 119ml Opti 320 was administered using automated injection techniques. Bolus tracking was employed to optimize arterial phase imaging. One of these 3D techniques was utilized: Maximum Intensity Pixel (MIP), 3D Reconstructed Images, Volume Rendered Images, Surface Shaded Rendering. One of the following dose reduction techniques was utilized for this exam: Automated exposure control, adjustment of the mA and/or kV according to patient size, and use of iterative reconstruction. CTDI: 26.63mGY DLP: 886.49 mGy-cm COMPARISON: Correlated to the prior chest x-ray dated 09/19/2024 16:23:00 STUDENT DEVELOPMENT SPECIALIST, 07/16/2023. FINDINGS: Aorta and Great Vessels: Ascending Aorta: Normal in caliber (upper limit) 40.4x40.9 mm, no aneurysm, dissection, or significant atherosclerosis. Aortic Arch: Normal in caliber, 26.8 mm, no aneurysm, dissection, or significant atherosclerosis. Descending Aorta: Normal in caliber, 29x28 mm, no aneurysm, dissection, or significant atherosclerosis. Pulmonary Arteries: The main pulmonary artery is 28.7 mm, and its branches are patent. No evidence of pulmonary embolism or significant stenosis. Heart: Cardiac Chambers: Normal in size. No evidence of cardiomegaly. Pericardium: No pericardial effusion or thickening. Coronary calcifications. Lungs and Pleura: Lungs are clear without evidence of consolidation, collapse, or focal lesions. Bilateral minimal pleural effusion or pleural thickening. Mediastinum: Small reactive right paratracheal lymphadenopathy. Normal appearance of the trachea and central bronchi. Hilar Structures: Hilar structures are normal without enlargement. Chest Wall: No mass lesions or abnormalities in the chest wall. Vascular Structures: Superior Vena Cava: Patent without evidence of stenosis or thrombus. Inferior Vena Cava: Patent without evidence of stenosis or thrombus. Bones and Soft Tissues: No fractures, lytic, or blastic lesions of the visualized bony structures. Soft tissues are unremarkable. IMPRESSION: 1. No pulmonary embolism at time of scan. 2. Upper limited ascending aorta diamater with no significant vascular abnormalities. 3. Bilateral minimal pleural effusion or pleural thickening. (new) Electronically signed by JuneDoug 09-19-2024 8:31 PM Dobutamine Stress ECHO 09/20/24 LV systolic function is normal. No regional wall motion abnormalities Mild concentric LVH LV Ejection Fraction 55-60% Trivial mild aortic insufficiency, mild tricuspid regurgitation. No prior study for comparison Discharge Instructions Given to Patient (Per Discharging Provider) You have been hospitalized for chest pain. Cardiac enzymes were negative x 3 ECHO (ultrasound) of the heart did NOT show any wall motion abnormalities concerning for damage to the heart. Chest CT was NEGATIVE for blood clot. As discussed, lipid panel is acceptable but recommend modifying diet and follow up with primary care but if remains elevated can start medication like atorvastatin (lipitor). A1c was 5.4 -- NOT diabetic. As discussed, I suspect need to limit salt in the diet and monitor your blood pressure. If remains elevated at home/above goal, you may benefit from addition al medications but have been well controlled at 122/68 this morning. Monitor for need for any reflux if related to after eating and consider limiting spice/fried foods like pizza. Please follow up with primary care in the next week after discharge to monitor your progress as well cardiology as needed. Please return to the ER with any return of symptoms, fever/chills, shortness of breath or for any other symptoms concerning for you. Take care! Supervising Physician Co-Signing Physician Notes The patient was not seen by me. The chart was reviewed. Case discussed with NAEL Prado. Agree with assessment and plan Total Time Total Time Spent Total Time Spent (In Minutes): 45 Coding Level of Care Code 96728 INP/OBS DISCH >30 MIN Diagnoses Exertional chest pain R07.9
[2024-09-20 12:12] VITALS: BP 123/77; PULSE 67; TEMP 97.9; O2SAT 96
--- NOTE | 2024-09-20 13:58 | Electrocardiogram Report ---
Test Reason : Blood Pressure : */* mmHG Vent. Rate : 83 BPM Atrial Rate : 83 BPM P-R Int : 174 ms QRS Dur : 94 ms QT Int : 384 ms P-R-T Axes : 54 53 43 degrees QTcB Int : 451 ms Sinus rhythm with occasional Premature ventricular complexes and Premature atrial complexes Otherwise normal ECG When compared with ECG of 16-Jul-2023 11:46, Premature ventricular complexes are now Present Premature atrial complexes are now Present Confirmed by Huy Anderson ([id number]) on 09/20/2024 1:58:26 PM Referred By: REFERRED SELF Confirmed By: Huy Anderson
--- NOTE | 2024-09-20 14:07 | Electrocardiogram Report ---
Test Reason : Blood Pressure : */* mmHG Vent. Rate : 68 BPM Atrial Rate : 68 BPM P-R Int : 174 ms QRS Dur : 102 ms QT Int : 438 ms P-R-T Axes : 61 65 50 degrees QTcB Int : 465 ms Sinus rhythm with Premature ventricular complexes Otherwise normal ECG When compared with ECG of 19-Sep-2024 16:50, (unconfirmed) No significant change Confirmed by Huy Anderson ([id number]) on 09/20/2024 2:06:40 PM Referred By: REFERRED SELF Confirmed By: Huy Anderson
== END 2024-09-20 12:40 | disposition home or self-care (01) ==
LOC: ED 16:41 → 2N 16:41 → SUATTDRO 19:49 → 2N 21:50